=== PATIENT | male | born 1990 | race Hispanic/Latino ===

== ENCOUNTER 2023-11-08 11:18 | Emergency (ER) | payer OTHER, SELFPAY ==
[2023-11-08 11:20] VITALS: BP 139/86
[2023-11-08 11:55] VITALS: BMI 37.2
--- NOTE | 2023-11-08 12:31 | ED.MUSCINJ ---
HPI-Injury
General
Chief Complaint: Musculo-Skeletal Complaint
Source: patient
Exam Limitations: none
Time Seen by Provider: 11/08/23 11:31
Nursing documentation reviewed up to this point in time: agreed with
History of Present Illness-Injury
Initial Injury comments:
33 yo male with hx right meniscus tear and repair 2019 in [place], presents with gradually increasing pain and swelling left knee over past week. Right ankle has started with shooting pains laterally he feels due to favoring the left leg. Is on his feet
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
Past History
Past History
ED Past Medical History: None
ED Past Surgical History: Orthopedic
Social History
Tobacco: Non-smoker
Alcohol: None
Living: with family
Employment: Employed
Review of Systems
Review of Systems
Allergies reviewed?: Yes
All Other Systems: ROS reviewed and negative except as documented in HPI and ROS
Constitutional: Denies fever
Musculoskeletal: Reports other (pain and swelling left knee. Intermittent shooting pains right outer ankle)
Skin: Reports no symptoms
Musculoskeletal Injury Exam
Musculoskeletal Injury Exam
Left Knee:
Pain with Movement?: Moderate
Tender to palpation?: Mild
Soft tissue swelling?: Mild
Joint effusion?: Mild
Crepitus with movement?: No
Joint instability?: No
Malalignment/deformity?: No
Range of motion: Limited (Mildly.)
Distal skin color and temperature: normal-warm & good color (No erythema or warmth about the knee joint)
Capillary Refill: normal
Normal distal neurovascular exam?: Yes
Right Ankle:
Pain with Movement?: None
Tender to palpation?: None
Soft tissue swelling?: None
Range of motion: Full
Distal skin color and temperature: normal-warm & good color
Capillary Refill: normal
Normal distal neurovascular exam?: Yes
Phy Exam
Physical Exam
Physical Exam:
PHYSICAL EXAMINATION:
General: no apparent distress, not acutely ill
Neuro: alert and oriented.
Psychiatric: well kept. interactive and cooperative
Musculoskeletal: Moves with ease. No swelling, redness or significant tenderness about the right ankle. Mild limited ROM of left knee. Mild swelling and tenderness. Distal n/v intact.
Skin: Warm, pink.
Injury Course
Orders/Labs/Results
Orders:
Orders
11/08/23 11:20
CR Ankle - Right Min 3 Views * Urgent
Comment:
Reason For Exam: pain
CR Knee - Left 4 Or More View* Urgent
Comment:
Reason For Exam: pain
11/08/23 12:42
Body Fluid Cell Count Urgent
What is the Body Fluid: joint
Date Specimen was Collected: 11/08/23
Time Specimen was Collected: 12:38
Comment: with DIFF
Body Fluid Crystals Urgent
What is the Body Fluid: joint
Date Specimen was Collected: 11/08/23
Time Specimen was Collected: 12:38
Fluid Culture with Gram Stain Urgent
RUIZ Source: Joint Fluid
Specimen Description:
Date Specimen was Collected: 11/08/23
Time Specimen was Collected: 12:38
MDM/Problems Addressed
Differential Diagnosis Includes:
sprain, meniscus tear, effusion, Lymes
MDM/Problems Addressed:
33 yo male with hx right meniscus tear and repair 2019 in [place], presents with gradually increasing pain and swelling left knee over past week. Right ankle has started with shooting pains laterally he feels due to favoring the left leg. Is on his feet
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
No sign of septic joint.
Xrays read by this examiner:
Xray right ankle neg.
Xray left knee: small suprapatellar effusion
Fluid evaluation reveals no infectious process.
Lyme pending
Pt has a neoprene knee brace he will put on at home.
Pt ambulated out with normal gait.
*Critical Care Note
Total Time (30-74mins, 75-104mins- exclusive of procedures): Not Applicable
ED Attending Note
-
Portions of this chart may have been created with voice recognition software.� Occasional wrong word or��sound alike� substitutions may have occurred due to the inherent limitations of voice recognition software.
Discharge Plan
Departure
Patient Disposition: Home (Routine Discharge)
Date of Disposition: 11/08/23
Time of Disposition: 12:36
Patient with high blood pressure during this ER visit?: No
Condition: Good
Discharge Problem:
Acute pain of left knee, Effusion of left knee
Instructions: Swollen Joints (DC), Using Cold for Pain
Referrals:
Sabina Baron CRNP [Family Provider] -
Sourav Wise MD [Active] - Next open appointment
Activity Restrictions/Additional Instructions:
As we discussed, put your knee brace on when you get home. Wear it daily as needed for swelling.
Tylenol or ibuprofen as needed for pain
Call the orthopedic doctors office tomorrow to make an appointment as you may need further testing if they suspected torn meniscus.
Interventions
Interventions:
*Risk Screen - Suicide Last Done: 11/08/23 11:24
*General Assessment Last Done: 11/08/23 11:56
*Neglect/Abuse Screening Last Done: 11/08/23 11:24
*ED COVID-19 Vaccine History Last Done: 11/08/23 11:56
*Nursing Disposition Last Done: 11/08/23 13:15
ED-Musculoskeletal Assessment Last Done: 11/08/23 11:58
Discharge Date and Time
Discharge Date/Time: 11/08/23 13:56
Print Language: [id number]
[2023-11-08 14:11] LABS: Body Fluid WBC 405 /CUMM
[2023-11-08 14:33] LABS: Body Fluid Mononuclear 93.3 %; Body Fluid Polymorphonuclear 6.7 %; Body Fluid Second Tech DW
== END 2023-11-08 13:56 | disposition home or self-care (01) ==
LOC: EMR 11:18
PROVIDERS: Registered Nurse; EMERGENCY PHYSICIAN Emergency Medicine; FAMILY PHYSICIAN Nurse Practitioner Family
DX: M25.462 Effusion, left knee (principal); M25.562 Pain in left knee; M25.571 Pain in right ankle and joints of right foot
CPT/HCPCS: 20610; 99283; 73564; 73610; 87015; 87070; 87205; 89051; 89060

== ENCOUNTER 2023-12-23 06:23 | Day surgery (SDC) | payer OTHER, SELFPAY ==
[2023-12-23] VITALS (7 sets, daily range): BP systolic 106–144; BP diastolic 58–83; BMI 37.9
[2023-12-23] MEDS: TYLENOL 1000 MG PO (12:37)
--- NOTE | 2023-12-23 18:48 | W.IMMPOSTOP ---
Surgical Immed Post Op Note
-
Primary Surgeon: Gregor Mistry MD
Assisting Surgeon:
Pre-op Diagnosis: left knee medial meniscal tear
Post-op Diagnosis: left knee medial meniscal tear
Procedure Performed: arthroscopic left knee partial medial meniscectomy
Anesthesia Type: general
Specimen / Cultures: none
Estimated Blood Loss: 5mL
Complications: none apparent
Operative Findings: posterior horn medial meniscal tear, intact root
Operative dictation # [id number]
== END 2023-12-23 19:40 | disposition home or self-care (01) ==
LOC: SDS 06:23
PROVIDERS: ATTENDING PHYSICIAN Student in an Organized Health Care Education/Training Program
DX: S83.242A Other tear of medial meniscus, current injury, left knee, initial encounter (principal); X58.XXXA Exposure to other specified factors, initial encounter
CPT/HCPCS: 29881